=== PATIENT | female | born 1970 | race Caucasian/White ===

== ENCOUNTER 2024-09-28 07:00 | Emergency (ER) | payer SELFPAY ==
[2024-09-28] MEDS ORDERED: Ziprasidone 20 MG CAP ONE (08:06)
[2024-09-28] MEDS ORDERED: carBAMazepine 100 mg Chewable Tablet PO SCH (08:30)
== END 2024-09-28 09:05 | disposition home or self-care (01) ==
LOC: ERS 07:00
DX: R25.1 Tremor, unspecified (principal); I10 Essential (primary) hypertension; Z76.0 Encounter for issue of repeat prescription; Z79.899 Other long term (current) drug therapy
CPT/HCPCS: 87428; 99283

== ENCOUNTER 2024-10-04 18:40 | Emergency (ER) | payer SELFPAY ==
[2024-10-04] MEDS ORDERED: predniSONE 20 MG TAB ONE (19:12)
[2024-10-04] MEDS ORDERED: Benzonatate 100 MG CAP ONE (19:12)
[2024-10-04] MEDS ORDERED: Ipratropium/Albuterol 3 ML NEB ONE (19:13)
== END 2024-10-04 20:20 | disposition home or self-care (01) ==
LOC: ERS 18:40
DX: U07.1 COVID-19 (principal); J11.1 Influenza due to unidentified influenza virus with other respiratory manifestations; I10 Essential (primary) hypertension
CPT/HCPCS: 71045; 87428; J7512; J7620